=== PATIENT | male | born 1995 | race African-American/Black ===

== ENCOUNTER 2017-07-26 05:55 | Emergency (ER) | payer MEDICAID | END 2017-07-26 07:58 | disposition home or self-care (01) | LOC: D.ER 05:55 | DX: S61.412A Laceration without foreign body of left hand, initial encounter (principal); Y04.2XXA Assault by strike against or bumped into by another person, initial encounter; Y93.89 Activity, other specified; Y92.89 Other specified places as the place of occurrence of the external cause; F17.200 Nicotine dependence, unspecified, uncomplicated ==